=== PATIENT | male | born 1960 | race African-American/Black ===

== ENCOUNTER 2017-03-01 21:12 | Emergency (ER) | payer OTHER ==
[~2017-03-01] VITALS: Ht 172.7 cm; Wt 78.0 kg
[~2017-03-01 21:12] MED LIST: PHEN100C PO; WARF5TAB7 PO
[2017-03-01] MEDS ORDERED: HYDROmorphone 1 MG/ML, 1ML IM STA (21:33)
[2017-03-01] MEDS ORDERED: HYDROmorphone 1 MG/ML, 1ML ONE (21:35)
[2017-03-01 22:13] VITALS: BP 142/90
== END 2017-03-01 22:48 | disposition home or self-care (01) ==
LOC: ED 22:15
DX: S16.1XXA Strain of muscle, fascia and tendon at neck level, initial encounter (principal); X58.XXXA Exposure to other specified factors, initial encounter; Y93.89 Activity, other specified; Y92.89 Other specified places as the place of occurrence of the external cause; Y99.8 Other external cause status
CPT/HCPCS: 72050; 96372; 99284; J1170

== ENCOUNTER 2020-02-24 13:57 | Emergency (ER) | payer OTHER ==
[~2020-02-24] VITALS: Ht 172.7 cm; Wt 71.6 kg
[~2020-02-24 13:57] MED LIST changes: +WARF-36 PO; -WARF5TAB7 PO
--- NOTE | 2020-02-24 14:38 | NUR ---
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
--- NOTE | 2020-02-24 14:46 | NUR ---
PT CAME IN CO OF DIZZINESS IN THE MORNING. "WHEN I GET UP TO GET READY FOR WORK IN THE MORNING I BECOME REALYL DIZZY. ALMOST TO THE POINT OF PASSING OUT. I HAVE TO HOLD ONTO THINGS TO STAY ON MY FEET." PT DENIES GLF, DENIES LOC. HOOKED UP TO [facility]PL[facility] AND PULSE [facility]X. BLANKET PROVIDED.
[2020-02-24] MEDS ORDERED: MECLIZINE CHEWABLE 25 MG TAB ONE (15:12)
[2020-02-24 15:14] VITALS: BP 127/97
--- NOTE | 2020-02-24 15:14 | NUR ---
PT RESTING IN [facility]. MEDICATED PER JAN. PT IS USING CELL PHONE. NAD
[2020-02-24] MEDS ORDERED: MECLIZINE CHEWABLE 25 MG TAB PO ONE (15:30)
[2020-02-24 15:39] LABS: BASOPHILS # (AUTO) 0.04 x10^3/uL (0-0.1); BASOPHILS % (AUTO) 1 % (0-1); EOSINOPHILS # (AUTO) 0.45 x10^3/uL (0-0.4); EOSINOPHILS % (AUTO) 12 % (1-7); LYMPHOCYTES % (AUTO) 49 % (22-44); MD NO; MEAN CORPUSCULAR HEMOGLOBIN 28.9 pg (27.5-34.5); MEAN CORPUSCULAR HGB CONC 32.9 g/dL (33.2-36.2); MEAN CORPUSCULAR VOLUME 87.7 fL (81-97); MEAN PLATELET VOLUME 7.3 fL (7.4-10.4); MONOCYTES % (AUTO) 8 % (2-9); NEUTROPHILS # (AUTO) 1.07 x10^3/uL (1.8-6.8); NEUTROPHILS % (AUTO) 29 % (42-75); PLATELET COUNT 293 x10^3/uL (130-400); RED BLOOD COUNT 4.87 x10^6/uL (4.38-5.82); RED CELL DISTRIBUTION WIDTH 15.1 % (9.4-14.8)
[2020-02-24 15:47] LABS: ALBUMIN 3.4 g/dL (3.4-5.0); ANION GAP 4 mmol/L (5-15); CALCIUM 8.6 mg/dL (8.5-10.1); CHLORIDE 107 mmol/L (98-107); CREATININE 0.98 mg/dL (0.7-1.3)
--- NOTE | 2020-02-24 16:03 | NUR ---
REPORTED CRTICAL LAB VALUE TO
== END 2020-02-24 16:26 | disposition home or self-care (01) ==
LOC: ED 14:48
DX: R42 Dizziness and giddiness (principal); T42.0X1A Poisoning by hydantoin derivatives, accidental (unintentional), initial encounter; I10 Essential (primary) hypertension; F17.200 Nicotine dependence, unspecified, uncomplicated; G40.909 Epilepsy, unspecified, not intractable, without status epilepticus; E78.5 Hyperlipidemia, unspecified; Z86.718 Personal history of other venous thrombosis and embolism; Y92.89 Other specified places as the place of occurrence of the external cause
CPT/HCPCS: 36415; 80048; 80185; 82040; 85025; 93005; 99284